=== PATIENT | female | born 1985 | race Caucasian/White ===

== ENCOUNTER 2016-11-06 18:31 | Emergency (ER) | payer MEDICARE ==
[~2016-11-06] VITALS: Ht 167.6 cm; Wt 81.8 kg
[2016-11-06 18:39] VITALS: BP 130/62; PULSE 110; RESP 18; O2SAT 100
--- NOTE | 2016-11-06 18:46 | ED.REPORT ---
HPI-Neurologic Deficit Date of Service Nov 06, 2016 ED Provider: Ricco DoeO. A 31 year old female with a medical history including right ocular herpes zoster and epilepsy s/p brain surgery (2015) presents to the ED via EMS after an episode of shaking and seizing witnessed by her 10 year old daughter just prior to arrival. EMS found the patient with normal vital signs, but witnessed "atypical seizure activity" en route and administered Versed 5 IM. The patient is having difficulty communicating in the ED, so history is limited. Nursing Notes Stated Complaint: SEIZURES Chief Complaint: Neuro Symptoms/ Deficits Nursing Notes Reviewed: Yes Allergies: Coded Allergies: Penicillins (Verified Allergy, Unknown, 08/14/16) General Time Seen by Provider: 18:46 Chief Complaint Seizure, Other (Shaking) Hx Obtained From: EMS Unable to Obtain Hx: Patient condition, Mental status Arrived By: Ambulance Sudden in Onset?: Yes Onset Occurred: Just prior to arrival Symptom Duration: Since onset Associated with: Denies: Fever Pertinent Negative: Relieved by nothing Related History: Reports: Seizure disorder Immunizations: Unknown Recent Healthcare: No recent doctor visit Past Medical History Past Medical History Notes: 08/14/2016: Meds- per pt Lorazepam PRN, naproxen, vipmat, keppra Primary care- pt sees in [place], cannot recall who Past Medical History Epilepsy Ocular herpes zoster, right eye Past Surgical History Brain surgery 2 for epilepsy Smoking History Current Every Day Smoker, Never Smoker Social History Alcohol Use: Denies alcohol use Drug Use: Denies drug use Other Social History: Lives with children Ambulatory Status Independent Review of Systems Unable to Obtain ROS Patient condition, Mental status Physical Exam Initial Vital Signs Vital Signs (First) Date Time Temp Pulse Resp B/P Pulse Ox O2 Delivery O2 Flow Rate FiO2 11/06/16 18:39 36.7 110 18 130/62 100 Room Air Initial VS: Reviewed ENT: Conjunctiva normal, No scleral icterus Neck: Supple, Full range of motion Skin: Warm, Dry Psychiatric: Mood/affect normal, Behavior normal General/Constitutional: Awake, Alert Behavior: Positive: Anxious, Tearful Head / Eyes: Atraumatic, Normocephalic Respiratory / Chest: Breath sounds NL, Breath sounds = bilat, No respiratory distress Cardiovascular: Heart rate NL, Regular rhythm, Heart sounds NL NEUROLOGIC: Waxing and waning ability to follow commands Moving all four extremities equally Waxing and waning word finding difficulty Interpretation & Diagnostics URINE : Negative Lab Results Interpretation Result Diagram: 11/06/16182911/06/161829 Test 11/06/16 18:30 11/06/16 20:37 White Blood Count 12.6th/mm3 (3.8-10.1) Red Blood Count 4.85mil/mm3 (3.90-5.20) Hemoglobin 14.4g/dL (12.0-15.6) Hematocrit 42.3% (35.0-46.0) Mean Corpuscular Volume 87.2fL (81-100) Mean Corpuscular Hemoglobin 29.7pg (27.0-35.0) Mean Corpuscular Hemoglobin Concent 34.0% (32.0-37.0) Red Cell Distribution Width 12.5% (12.3-15.4) Platelet Count 242bil/L (150-400) Neutrophils (%) (Auto) 70.6% (40-74) Lymphocytes (%) (Auto) 21.8% (14-46) Monocytes (%) (Auto) 6.9% (4-12) Eosinophils (%) (Auto) 0.3% (0-5) Basophils (%) (Auto) 0.2% (0-3) Sodium Level 140mEq/L (134-144) Potassium Level 3.0mEq/L (3.5-5.2) Chloride Level 101mEq/L (97-108) Carbon Dioxide Level 22mmol/L (18-29) Blood Urea Nitrogen 8mg/dL (6-20) Creatinine 0.72mg/dL (0.57-1.00) Estimat Glomerular Filtration Rate 135mL/min (>59) Glucose Level 120mg/dL (60-99) Calcium Level 9.4mg/dL (8.5-10.1) Total Bilirubin 0.3mg/dL (0.0-1.2) Aspartate Amino Transf (AST/SGOT) 19U/L (0-50) Alanine Aminotransferase (ALT/SGPT) 20U/L (0-32) Alkaline Phosphatase 60U/L (25-150) Total Protein 7.3g/dL (6.4-8.4) Albumin 4.8g/dL (3.4-5.0) Urine Color Yellow (YELLOW) Urine Appearance Cloudy (CLEAR,HAZY) Urine pH 7.5 (5.0-8.0) Urine Specific [place] 1.010 (1.003-1.035) Urine Protein Negativemg/dL (NEG,TRACE) Urine Glucose (UA) Negativemg/dL (NEGATIVE) Urine Ketones Negativemg/dL (NEGATIVE) Urine Occult Blood Negative (NEGATIVE) Urine Nitrite Negative (NEGATIVE) Urine Bilirubin Negative (NEGATIVE) Urine Urobilinogen Normalmg/dL (NORMAL) Urine Leukocyte Esterase Negative (NEGATIVE) Urine RBC 0-2/hpf (0-2) Urine WBC 0-5/hpf (0-5) Urine Epithelial Cells Occasional/hpf (NONE-MOD) Urine Crystals Amorphous urates (NONE Urine Bacteria None/hpf (NONE-FEW) Urine Hyaline Casts None/lpf (NONE) Urine Granular Casts None seen (NONE SEEN) Urine Waxy Casts None seen (NONE SEEN) Urine Red Blood Cell Casts None seen (NONE SEEN) Urine White Blood Cell Casts None seen (NONE SEEN) Urine Mucus None seen (None Seen) Urine Trichomonas None seen (NONE SEEN) Urine Yeast None (NONE SEEN) Urinalysis Comment None Urine Culture Reflexed Not indicated CT Head Interpretation IMPRESSION: 1. Left temporal resection cavity. 2. No acute intracranial abnormality. Dictated by: Agustina Mo M.D. on 11/06/2016 at 19:23 Study: Head CT no contrast Interpretation / Wet Read by: Interpret - Radiologist Re-Eval/Medical Decision Med Decision/Clinical Course 31-year-old female with a history of epilepsy presents after having a seizure. She was given Versed which broke the seizure. She was observed until she was completely lucid. She was definitely postictal on arrival. Prior brain surgery for her seizure so therefore CT was performed. Expected postop findings were observed. Laboratory work was reviewed. She was given a gram of Keppra because she is due for this tonight anyways. She developed muscular skeletal pain related to the seizure. No point bony tenderness. She does not feel that she needed x-rays. I concurred. She is going to follow closely with her neurologist. [place] was provided for the muscular skeletal pain. She is discharged with another adult. She will not combine Lodge [place] with any sedatives however. Routine opiate warnings were given. Source of Hx: Old records Re-Evaluation/Progress #1: Time of Eval: 19:53 )( Re-Eval Neurologic Exam: Alert Patient Status: Condition improved Re-Evaluation/Progress Note: Patient is now awake, alert, and able to communicate. Re-Evaluation/Progress #2: Time of Eval: 20:39 )( Re-Eval Neurologic Exam: Alert, Pt is back to baseline, Oriented X3, Speech normal Patient Status: Condition improved Re-Evaluation/Progress Note: Patient rechecked and additional history obtained. This is the first major seizure the patient has had since her brain surgery last year, although she has had 4-5 milder seizures. She now reports right shoulder pain. Discussed with patient CT and lab results, diagnosis, and plan for discharge. Follow-up and return to the ER instructions given. Patient agrees with plan for care and all questions were addressed. Re-Evaluation/Progress #3: Time of Eval: 22:31 )( Re-Eval Neurologic Exam: Alert Patient Status: Condition improved Re-Evaluation/Progress Note: Patient had medication questions. She also requests pain medication. All questions were addressed. Counseled Regarding: Diagnosis, Lab results, Need for follow-up, When/why to return to ED Discharge & Departure Shift Change Sign-Out Response to Therapy: Improved Impression: Primary Impression: Seizure Disposition: Home Discharge Condition All VS Reviewed: Yes Condition: Improved Patient Instructions: Epilepsy (ED) Additional Instructions: The CAT scan of your brain showed expected postoperative findings. Your laboratory work is reassuring. We have sent off a Keppra level and this will be available in a couple of days. Take all of your epilepsy medications tonight except for the Keppra. You have been given a dose of IV Keppra. I would like you to call your neurologist first thing in the morning and tell the office that you had another seizure. Ask them if you should adjust your doses of medication. Stay with a responsible adult tonight. Do not drive today as you have received sedating medications. Do not drive until cleared by a neurologist. Read the seizure after care instructions given. Do not participate in any activities that put you or others at risk if you have another seizure. You may also recheck with our local neurologist for follow-up and discuss your seizures as well. I will also recommend you set up a follow- up with your primary care physician. 1-2 Lodge [place] every six hours as needed for the musculoskeletal pain related to your seizure. Do not drink alcohol, drive, or consume acetaminophen while taking [place]. Referrals: NOPCP (PCP) Maty Sutton MD [facility] Scribe Attestation Portions of this note were transcribed by Melinda Serrano. I, Dr. Campuzano, personally performed the history, physical exam, and medical decision-making; I reviewed and confirmed the accuracy of the information in the transcribed note. Signed by: Franchesca Worley, 11/06/2016, 23:35 copies to: Maty Sutton MD; [facility] Ruben Campuzano DO Nov 06, 2016 18:46 MELINDA SERRANO Nov 06, 2016 19:08
[2016-11-06] MEDS ORDERED: 0.9% Sodium Chloride 1,000 ML IV ONE (18:50)
[2016-11-06 18:54] LABS: BASOPHILS % (AUTO) 0.2 % (0-3); EOSINOPHILS % (AUTO) 0.3 % (0-5); MONOCYTES % (AUTO) 6.9 % (4-12); Mean Corpuscular Hemoglobin 29.7 pg (27.0-35.0); Mean Corpuscular Volume 87.2 fL (81-100); NEUTROPHILS % (AUTO) 70.6 % (40-74); Platelet Count 242 bil/L (150-400)
--- NOTE | 2016-11-06 19:26 | DRSVH ---
PROCEDURE: CT BRAIN WITHOUT CONTRAST ([id number]) INDICATIONS: seizure, altered mental status TECHNIQUE: Noncontrast 4.5 mm thick angled axial sections acquired from the foramen magnum to the vertex, with c oronal reformats. COMPARISON: None. FINDINGS: Image quality: Excellent. CSF spaces: Basal cisterns are patent. A left middle cranial fossa CSF density focus is present milind uring 45 mm.. Ventricles are normal in size and shape. Brain: No midline shift. No intracranial masses or hemorrhage. Johnson-white matter interface is norm al. Skull and face: Left temporal craniotomy has been performed. Calvarium and visualized facial bones a re otherwise intact, without suspicious lesions. Sinuses: Visualized sinuses and mastoids are clear. IMPRESSION: 1. Left temporal resection cavity. 2. No acute intracranial abnormality. Dictated by: Agustina Mo M.D. on 11/06/2016 at 19:23 Approved by: Agustina Mo M.D. on 11/06/2016 at 19:24
[2016-11-06] MEDS ORDERED: levETIRAcetam Inj 1,000 MG in IV Premix 1 EACH IV ONE (20:45)
[2016-11-06] MEDS ORDERED: HYDROcodone-APAP 5-325 mg Tablet PO ONE (20:45)
[2016-11-06 20:51] LABS: APPEARANCE,URINE CLOUDY (CLEAR,HAZY); COLOR,URINE YELLOW (YELLOW); OCCULT BLOOD,URINE NEGATIVE (NEGATIVE); PH,URINE 7.5 (5.0-8.0); UROBILINOGEN,URINE NORMAL (NORMAL)
[2016-11-06] MEDS ORDERED: Ondansetron 2 mg/mL 2 mL Inj IVPUSH PRN (21:05)
[2016-11-06 21:23] VITALS: BP 127/64; PULSE 78; RESP 17; O2SAT 98
[2016-11-06] MEDS ORDERED: _HYDROcodone/APAP 5-325 mg Tablet PO PRN (22:35)
[2016-11-06 23:09] VITALS: BP 118/59; PULSE 82; RESP 15; O2SAT 98
== END 2016-11-06 23:12 | disposition home or self-care (01) ==
LOC: EDBD 18:31 → SED 18:31
DX: G40.909 Epilepsy, unspecified, not intractable, without status epilepticus (principal); F17.200 Nicotine dependence, unspecified, uncomplicated; Z98.890 Other specified postprocedural states; Z88.0 Allergy status to penicillin
CPT/HCPCS: 36415; 70450; 80053; 80299; 81000; 81025; 85025; 96361; 96374; 96375; 99285; J1953; J2405; J3360; J7030

== ENCOUNTER 2017-01-15 10:12 | Emergency (ER) | payer MEDICARE ==
[2017-01-15 10:15] VITALS: BP 123/68; PULSE 109; RESP 22; O2SAT 100
--- NOTE | 2017-01-15 10:33 | ED.REPORT ---
HPI-Neurologic Deficit Date of Service January 15, 2017 ED Provider: Kirsten Ahn MD The patient is a 31 year old female with history of seizures s/p brain surgery x2, who presents to the emergency department by EMS after she had a seizure around 0930 this morning. The patient states she was hearing the sounds that she normally hears when an episode is about to occur. She was able to call her friend when this started. The patient is having a hard time describing the episode. When asked what happened, she states she felt sick, nauseous, and confused during the episode. At this time she complains of a severe headache and left-sided numbness. She has had multiple episodes in the past. Last grand mal seizure was November 07 and there has been 2-3 similar episodes in the interval. She is currently on Keppra, Ativan, and Vimpat. She took all of her morning doses today. She denies recent illnesses. Nursing Notes Stated Complaint: MEMORY LOSS Chief Complaint: Neuro Symptoms/ Deficits Nursing Notes Reviewed: Yes Allergies: Coded Allergies: Penicillins (Verified Allergy, Unknown, 01/15/17) Scheduled Levetiracetam ER (Keppra XR) 500 Mg Tablet 500 MG PO DAILY total dose is 1250 daily (take this AND the 750mg keppra am and pm) Levetiracetam ER (Keppra XR) 750 Mg Tablet 750 MG PO DAILY total dose is 1250 daily (take this AND the 500mg keppra am and pm) General Time Seen by Provider: 10:33 Chief Complaint Seizure Hx Obtained From: Patient, EMS Arrived By: Ambulance Sudden in Onset?: Yes Onset Occurred: 1 - 4 hours ago Progression Since Onset: Gradually improving Location: : Head Quality: Painful Severity: Current: Severe Severity: Maximum: Severe Recent Healthcare: No recent doctor visit, No recent hospitalization Similar Sx Previous: Yes Past Medical History Past Medical History Notes: 08/14/2016: Meds- per pt Lorazepam PRN, naproxen, vipmat, keppra Primary care- pt sees in [place], cannot recall who Past Medical History Epilepsy Ocular herpes zoster, right eye Past Surgical History Brain surgery 2 for epilepsy Family History Noncontributory Smoking History Current Every Day Smoker, Never Smoker Social History Alcohol Use: Denies alcohol use Drug Use: Denies drug use Other Social History: Lives with children, Local resident Ambulatory Status Independent Review of Systems Review of Systems Note: +"felt sick," hearing sounds Constitutional: Denies: Chills, Fever Respiratory: Denies: Non-productive cough, Prod cough, bloody, Prod cough, brown, Prod cough, clear, Prod cough, green GI: Reports: Nausea, Denies: Vomiting Neurologic: Reports: Change LOC, Confusion, Headache, Numbness (left-sided), Seizure Complete sys rev & neg: except as marked. Ears / Nose / Throat: Denies: Nasal congestion, Sore throat Physical Exam Initial Vital Signs Vital Signs (First) Date Time Temp Pulse Resp B/P Pulse Ox O2 Delivery O2 Flow Rate FiO2 01/15/17 10:15 36.6 109 22 123/68 100 01/15/17 14:35 Room Air Initial VS: Reviewed ENT: Mucous membranes moist, Conjunctiva normal, No scleral icterus Neck: Supple, Non-tender, Full range of motion Abdomen / GI: Soft, Non-tender, No guarding, No rebound, No distention Back: No CVA tenderness Lymphatic: No lymphadenopathy Extremities: Vascular intact, Neuro intact, No swelling, No tenderness Skin: Warm, Dry, No cyanosis General/Constitutional: Awake, Alert Behavior: Positive: Anxious, Tearful Head / Eyes: Atraumatic, Normocephalic, PERRL, EOMI, No nystagmus Respiratory / Chest: Atraumatic, Breath sounds NL, Breath sounds = bilat, No respiratory distress, No rales, No rhonchi, No wheezing Cardiovascular: Heart rate NL, Regular rhythm, Heart sounds NL, No gallop, No murmurs, No rubs, Peripheral circulation NL Neurologic: Speech NL, No motor deficits, No sensory deficits A&Ox2. She is focused and trying to cooperate. She has mild receptive aphasia. She complains of left-sided numbness but on objective testing there is no findings. NIH stroke scale: 0. Abnormal Mood/Affect: Positive: Anxious Interpretation & Diagnostics Lab Results Interpretation Result Diagram: 01/15/17 1120 01/15/17 1120 Test 01/15/17 11:20 White Blood Count 7.8th/mm3 (3.8-10.1) Red Blood Count 4.58mil/mm3 (3.90-5.20) Hemoglobin 13.5g/dL (12.0-15.6) Hematocrit 39.8% (35.0-46.0) Mean Corpuscular Volume 86.9fL (81-100) Mean Corpuscular Hemoglobin 29.5pg (27.0-35.0) Mean Corpuscular Hemoglobin Concent 33.9% (32.0-37.0) Red Cell Distribution Width 12.3% (12.3-15.4) Platelet Count 217bil/L (150-400) Neutrophils (%) (Auto) 74.4% (40-74) Lymphocytes (%) (Auto) 19.9% (14-46) Monocytes (%) (Auto) 4.7% (4-12) Eosinophils (%) (Auto) 0.4% (0-5) Basophils (%) (Auto) 0.3% (0-3) Sodium Level 137mEq/L (134-144) Potassium Level 4.1mEq/L (3.5-5.2) Chloride Level 102mEq/L (97-108) Carbon Dioxide Level 20mmol/L (18-29) Blood Urea Nitrogen 8mg/dL (6-20) Creatinine 0.65mg/dL (0.57-1.00) Estimat Glomerular Filtration Rate 152mL/min (>59) Glucose Level 96mg/dL (60-99) Calcium Level 8.9mg/dL (8.5-10.1) Total Bilirubin 0.3mg/dL (0.0-1.2) Aspartate Amino Transf (AST/SGOT) 23U/L (0-50) Alanine Aminotransferase (ALT/SGPT) 17U/L (0-32) Alkaline Phosphatase 50U/L (25-150) Total Protein 7.1g/dL (6.4-8.4) Albumin 4.0g/dL (3.4-5.0) Hold Zimmer Top Tube Received (Received) Re-Eval/Medical Decision Med Decision/Clinical Course 31-year-old woman with complicated history of epilepsy status post frontal lobotomy to try to control seizures had been doing well until the last 8 months. Currently on high doses of 3 different seizure medications. The grand mal seizure back in November has had 2-3 partial seizures. Symptoms today started with hearing things and smelling things she called a friend concerned that she was going to have a seizure she then went on to have language difficulties and acute memory issues and found this all to be terrifying period for the course of her emergency room stay she has improved. Blood levels of all 3 seizure medications have been drawn and are expected be available within the next 4-5 days. In the meantime she is given an extra dose of 500 mg of Keppra in the emergency room and will increase her typical thousand milligrams of Keppra twice a day to 1250 mg twice a day Explain this to her and will ask her follow up with neurology, she does think she has an appointment coming up shortly. There is no evidence of other infectious disease or explanation for her symptoms today. Source of Hx: Old records, EMS Re-Evaluation/Progress #1: Time of Eval: 10:46 Re-Evaluation/Progress Note: The patient is improving and making more sense. Re-Evaluation/Progress #2: Time of Eval: 13:51 Re-Evaluation/Progress Note: Rechecked the patient. She is sleeping comfortably but wakes easily. She still complains of a headache but is otherwise feeling better. Discussed plan for discharge. All questions were addressed. Consultation : Consulted With: Neurology Call Returned at: 11:01 Inspector Balance Truing: Agrees with eval, Agrees with plan Note: Spoke to Dr. Levi, neurologist from [facility]. He recommended a basic workup and additional Keppra. He would like her PO Keppra increased from 1 g BID to 1250 mg BID. Previous left temporal lobectomy with intracranial mapping. Language difficulty is always part of the seizures. She has been worse in the last 6-8 months. Counseled Regarding: Diagnosis, Lab results, Need for follow-up, When/why to return to ED Discharge & Departure Impression: Primary Impression: Seizure Additional Impression: Postictal headache Disposition: Home Discharge Condition All VS Reviewed: Yes Condition: Stable Additional Instructions: Thank you for entrusting us with your care today. There is no evidence of any infection. I spoke with your neurologist at [facility], Dr Levi. He recommended that we increase your Keppra dose to 1250 mg twice daily. This will mean one 500mg pill AND one 750mg pill every am and every pm. I have sent the prescriptions to [facility] for you today. Continue all of your other prescribed medication. Make sure to rest and drink plenty of fluids. You need to schedule an appointment with the neurologist in the next week or two. I will send a copy of this entire ER visit as well as medication changes and discharge instructions to Dr Levi at [phone]. Seek care sooner for any new or concerning symptoms. Referrals: Michelle Rao MD (PCP) Scribe Attestation Portions of this note were transcribed by Nereida Washington. I, Dr. Ahn personally performed the history, physical exam and medical decision-making; I reviewed and confirmed the accuracy of the information in the transcribed note. Signed by: Franchesca Ochoa, 01/15/2017 at 1415. copies to: Michelle Rao MD, Shawna L MD January 15, 2017 10:33 Nereida Washington January 15, 2017 10:39
[2017-01-15] MEDS ORDERED: LORazepam 2 mg Tablet PO ONE (10:45)
[2017-01-15] MEDS ORDERED: Ondansetron 8 mg ODT Tablet PO ONE (10:45)
[2017-01-15 11:46] LABS: BASOPHILS % (AUTO) 0.3 % (0-3); EOSINOPHILS % (AUTO) 0.4 % (0-5); MONOCYTES % (AUTO) 4.7 % (4-12); Mean Corpuscular Hemoglobin 29.5 pg (27.0-35.0); Mean Corpuscular Volume 86.9 fL (81-100); NEUTROPHILS % (AUTO) 74.4 % (40-74); Platelet Count 217 bil/L (150-400)
[2017-01-15] MEDS ORDERED: [UNRECOGNIZED DRUG - CODE] PO (14:17)
[2017-01-15] MEDS ORDERED: LEVE500T22 PO (14:17)
[2017-01-15 14:35] VITALS: BP 101/51; PULSE 109; RESP 18; O2SAT 97
[2017-01-19 21:07] LABS: Levetiracetam (Keppra) 74.3 ug/mL (10.0-40.0)
== END 2017-01-15 14:36 | disposition home or self-care (01) ==
LOC: SED 10:12
DX: G40.909 Epilepsy, unspecified, not intractable, without status epilepticus (principal); R51 Headache; F17.200 Nicotine dependence, unspecified, uncomplicated; Z88.0 Allergy status to penicillin
CPT/HCPCS: 36415; 80053; 80299; 82542; 85025; 96374; 99284; J1953

== ENCOUNTER 2017-05-02 14:10 | Emergency (ER) | payer MEDICARE ==
[~2017-05-02] VITALS: Ht 172.7 cm; Wt 82.3 kg
[~2017-05-02 14:10] MED LIST: LEVE500T22 PO; [UNRECOGNIZED DRUG - CODE] PO
[2017-05-02 14:13] VITALS: BP 120/81; PULSE 95; RESP 18; O2SAT 97
--- NOTE | 2017-05-02 14:39 | ED.REPORT ---
HPI-Extremity Problem Lower Date of Service May 02, 2017 ED Provider: Asya Dolan History of Present Illness: going down 3 steps and lost balance twisted left foot. pain in left foot, happened last night around 930 pm. primary care is unknown. 2/10 pain. increases with walking. Used ice last evening Nursing Notes Stated Complaint: LEFT FOOT INJURY Chief Complaint: Extremity Trauma Nursing Notes Reviewed: Yes Allergies: Coded Allergies: Penicillins (Verified Allergy, Unknown, 01/15/17) Scheduled Levetiracetam ER (Keppra XR) 500 Mg Tablet 500 MG PO DAILY total dose is 1250 daily (take this AND the 750mg keppra am and pm) Levetiracetam ER (Keppra XR) 750 Mg Tablet 750 MG PO DAILY total dose is 1250 daily (take this AND the 500mg keppra am and pm) General Time Seen by MD: 14:32 Chief Complaint Foot injury left Hx Obtained From: Patient Onset Occurred: Yesterday Symptom Duration: Since onset Past Medical History Past Medical History Notes: 08/14/2016: Meds- per pt Lorazepam PRN, naproxen, vipmat, keppra Primary care- pt sees in [place], cannot recall who Past Medical History Epilepsy Ocular herpes zoster, right eye Past Surgical History Brain surgery 2 for epilepsy, last brain surgery was 2 years ago per patient 05/02/2017 Family History Noncontributory Smoking History Current Every Day Smoker (10 cig a day for 15 years), Never Smoker Social History Alcohol Use: Denies alcohol use Drug Use: Denies drug use Other Social History: Lives with children, Local resident Occupation lives with children no work or school, 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 05/02/2017 Ambulatory Status Independent Review of Systems Basic Review of Systems Eyes: Vision NL, No discharge : No dysuria, No frequency Psychiatric: Normal thought content Physical Exam Initial Vital Signs Vital Signs (First) Date Time Temp Pulse Resp B/P Pulse Ox O2 Delivery O2 Flow Rate FiO2 05/02/17 14:13 95 18 120/81 97 Room Air Initial VS: Reviewed, Vital signs normal General/Constitutional: Well-developed, Well-nourished Head / Eyes: Atraumatic, Normocephalic, PERRL ENT: Mucous membranes moist, Conjunctiva normal, No scleral icterus Neck: Supple, Non-tender, Full range of motion Respiratory: Breath sounds normal, Clear to auscultation, No respiratory distress Cardiovascular: Regular rate & rhythm, Heart sounds normal, Intact distal pulses Abdomen / GI: Soft, Non-tender, No guarding, No rebound, No distention Back: No CVA tenderness Lymphatic: No lymphadenopathy Upper Extremities: Vascular intact, Neuro intact, No swelling, No tenderness Skin: Warm, Dry, No cyanosis Neurologic: Alert, Oriented, Nonfocal Psychiatric: Mood/affect normal, Behavior normal, Normal thought content Lower Extremity / Pelvis / MS: Atraumatic, Inspection NL, Full range of motion patient indicates left lateral foot is the greatest pain. No ecchymosis, no swelling noted. Cap refill less than 2 sec. Sensation intact distally General/Constitutional: Awake, Alert, No acute distress, Well appearing, Well developed, Well hydrated, Well nourished, Cooperative, Not toxic appearing Respiratory / Chest: Atraumatic, Breath sounds NL, Breath sounds = bilat, No respiratory distress, No rales, No rhonchi, No wheezing, No retractions Cardiovascular: Heart rate NL, Regular rhythm, Heart sounds NL, No gallop, No murmurs, No rubs Interpretation & Diagnostics X-Ray Interpretation Xray Interpretation: PROCEDURE: X-RAY LEFT FOOT COMPLETE, MINIMUM THREE VIEWS ([id number]) INDICATIONS: twisted pain TECHNIQUE: 3 views of the foot were acquired. COMPARISON: None. FINDINGS: Bones: No fractures or dislocations. No suspicious bony lesions. Soft tissues: No tibiotalar joint effusion. Achilles tendon appears normal. IMPRESSION: No acute fracture. No osseous lesion. If symptoms and/or clinical suspicion for pathology persist, further assessment with repeat, or advanced imaging (e.g., CT, MRI, or bone scan) may be helpful for further assessment. Dictated by: Agustina Mo M.D. on 05/02/2017 at 15:06 Approved by: Agustina Mo M.D. on 05/02/2017 at 15:06 Re-Eval/Medical Decision Med Decision/Clinical Course 31 year old female presents for evualation of left foot pain after a near fall which resulted in a twisting movement to her left foot last evening. Exam is reassuring, no sign of ecchymosis, no skin disruption, no swelling noted. X-ray is negative for any sign of bony damage. No sign of compartment syndrome. Discharge & Departure Impression: Primary Impression: Sprain of foot, left Encounter type: initial encounter Qualified Code: S93.602A - Unspecified sprain of left foot, initial encounter Disposition: Home Patient Instructions: Foot Sprain (ED), Crutch Instructions (ED) Additional Instructions: The x-ray does not show any sign of bony damage. Elevate the foot as much as possible. Use the splint for comfort. Use ibuprofen 800 mg up to 3 times a day for 5 days for discomfort. Can use hydrocodone 1 at night as needed for severe unrelenting pain. As you have balance issues at baseline, the hydrocodone may increase your balance issues. Please take in the evening when you are not attempting to ambulate. I am sorry this happened. Referrals: Michelle Rao MD (PCP) EDSupervising Provider for APC: Casimiro Elam MD copies to: Michelle Rao MD, Sue ARNP May 02, 2017 14:39
--- NOTE | 2017-05-02 15:08 | DRSVH ---
PROCEDURE: X-RAY LEFT FOOT COMPLETE, MINIMUM THREE VIEWS ([id number]) INDICATIONS: twisted pain TECHNIQUE: 3 views of the foot were acquired. COMPARISON: None. FINDINGS: Bones: No fractures or dislocations. No suspicious bony lesions. Soft tissues: No tibiotalar joint effusion. Achilles tendon appears normal. IMPRESSION: No acute fracture. No osseous lesion. If symptoms and/or clinical suspicion for patholog y persist, further assessment with repeat, or advanced imaging (e.g., CT, MRI, or bone scan) may be h elpful for further assessment. Dictated by: Agustina Mo M.D. on 05/02/2017 at 15:06 Approved by: Agustina Mo M.D. on 05/02/2017 at 15:06
[2017-05-02 15:37] VITALS: BP 120/81; PULSE 95; RESP 18; O2SAT 97
== END 2017-05-02 15:40 | disposition home or self-care (01) ==
LOC: SED 14:10
DX: S93.692A Other sprain of left foot, initial encounter (principal); X50.0XXA Overexertion from strenuous movement or load, initial encounter; Y93.01 Activity, walking, marching and hiking; Y99.8 Other external cause status; Y92.89 Other specified places as the place of occurrence of the external cause; F17.210 Nicotine dependence, cigarettes, uncomplicated; Z98.890 Other specified postprocedural states; Z86.69 Personal history of other diseases of the nervous system and sense organs; Z88.0 Allergy status to penicillin